=== PATIENT | female | born 1965 | race African-American/Black ===

== ENCOUNTER 2016-04-07 14:52 | Emergency (ER) | payer OTHER ==
--- NOTE | 2016-04-07 16:41 | ED ---
Throat Pain/Nasal Congestion - HPI Summary HPI Summary: 50 female presents today complaining of sore throat and right ear pain that started approximately 2-3 days ago. Patient states it hurts upon swallowing. She also complains of over production of clear saliva that she has to keep spitting out and sometimes causes her to gag. Patient states her daughter is home sick with similar symptoms. She also has been suffering from headache and chills, however she has not taken her temperature. Complains of radiation of pain to the right ear upon swallowing. She does still have her tonsils. She states her voice sounds different. Voice does not sound muffled upon exam. She denies any difficulty breathing, SOB, chest pain, cough, nasal congestion, sinus pressure/pain, nausea/vomiting, diarrhea or constipation. - History of Current Complaint Chief Complaint: EDThroatPain Hx Obtained From: Patient Onset/Duration: Sudden Onset - over the past 2 days, getting worse Severity: Moderate Associated Signs And Symptoms: Positive: Dysphagia, Drooling - excessive saliva production. Negative: FB Sensation, Wheezing, Hoarseness, Sinus Discomfort, Nasal Discharge Cough: None - Epiglottits Risk Factors Epiglottis Risk Factors: Negative - Allergies/Home Medications Allergies/Adverse Reactions: Allergies Allergy/AdvReac Type Severity Reaction Status Date / Time No Known Allergies Allergy Verified 07/24/15 11:05 PMH/Surg Hx/FS Hx/Imm Hx Previously Healthy: Yes Endocrine/Hematology History: Reports: Hx Diabetes Cardiovascular History: Denies: Hx Hypertension, Hx Pacemaker/ICD Respiratory History: Denies: Hx Asthma, Hx Pneumonia History: Denies: Hx Dialysis, Hx Renal Disease Sensory History: Denies: Hx Hearing Aid Psychiatric History: Denies: Hx Panic Disorder - Cancer History Hx Chemotherapy: No Hx Radiation Therapy: No - Surgical History Surgery Procedure, Year, and Place: . RT BREAST BX 9benign) Infectious Disease History: No Infectious Disease History: Denies: Hx Clostridium Difficile, Hx Hepatitis, Hx Human Immunodeficiency Virus (HIV), Hx of Known/Suspected MRSA, Hx Shingles, Hx Tuberculosis, Hx Known/ Suspected VRE, Hx Known/Suspected VRSA, History Other Infectious Disease, Traveled Outside the [place] in Last 30 Days - Family History Known Family History: Positive: Diabetes - Social History Alcohol Use: None Hx Substance Use: No Substance Use Type: Reports: None Hx Tobacco Use: No Smoking Status (MU): Never Smoked Tobacco Review of Systems Positive: Chills, Fatigue. Negative: Fever Eyes: Negative Positive: Sore Throat, Ear Ache - right ear. Negative: Dental Pain, Nasal Discharge Cardiovascular: Negative Negative: Palpitations Respiratory: Negative Negative: Shortness Of Breath, Cough Gastrointestinal: Negative Genitourinary: Negative Musculoskeletal: Negative Skin: Negative Neurological: Negative Negative: Slurred Speech Psychological: Normal All Other Systems Reviewed And Are Negative: Yes Physical Exam Triage Information Reviewed: Yes Vital Signs On Initial Exam: Initial Vitals Temp Pulse Resp BP Pulse Ox 97 F 86 16 197/83 100 04/07/16 14:54 04/07/16 14:54 04/07/16 14:54 04/07/16 14:54 04/07/16 14:54 Blood pressure elevated Vital Signs Reviewed: Yes Appearance: Positive: No Pain Distress, Well-Nourished, Ill-Appearing Skin: Positive: Warm, Skin Color Reflects Adequate Perfusion, Dry Head/Face: Positive: Normal Head/Face Inspection, Other - complains of pain upon palpation of cervical lymph nodes/anterior neck, no obvious swelling noted.. Negative: Temporal Artery Tenderness, TMJ Tenderness Eyes: Positive: Normal ENT: Positive: Hearing grossly normal, Pharyngeal erythema - erythema/ mild swelling in front of right tonsil. uvula midline. No muffled "hot potato voice" noted, TMs normal, Tonsillar swelling - painful to open mouth upon examination however no trismus. excessive saliva production upon examination. no exudate noted.. Negative: Nasal congestion, Nasal drainage, TM red, Trismus, Muffled/ hoarse voice, Dental tenderness Dental: Positive: Oropharynx - erythema, tonsillar swelling Neck: Positive: Supple, No Lymphadenopathy, Tenderness @ - anterior neck, right side more than left side Respiratory/Lung Sounds: Positive: Clear to Auscultation, Breath Sounds Present , Subcutaneous Emphysema Cardiovascular: Positive: Normal, RRR Abdomen Description: Positive: Nontender Bowel Sounds: Positive: Present Musculoskeletal: Positive: Normal Neurological: Positive: Normal Psychiatric: Positive: Normal Diagnostics - Vital Signs Vital Signs Temp Pulse Resp BP Pulse Ox 04/07/16 14:54 97 F 86 16 197/83 100 - Laboratory Pertinent Lab Values Are: WNL Except: - WBC Result Diagrams: 04/07/16 17:40 04/07/16 17:40 Lab Statement: Any lab studies that have been ordered have been reviewed, and results considered in the medical decision making process. - CT No standard instances CT Interpretation: Positive (See Comments) CT Interpretation Completed By: Radiologist - Swelling of the RIGHT greater than LEFT palatine tonsils with associated narrowing of the oral pharyngeal airway. Significant partial compression of the RIGHT piriform recess. Unremarkable epiglottis. No loculated peritonsillar abscess evident. Re-Evaluation - Re-Evaluation First Eval Re-Evaluation Time: 19:30 Change: Improved - Patient was doing better after ibuprofen and steroid. no adverse reaction to contrast. repeat blood pressure was lower than first. EENT Course/Dx - Course Course Of Treatment: Patient was evaluated for peritonsillar abscess. CBC, CMP, UA, fluids and CT soft tissue neck with contrast was ordered. Throat culture was negative. Cr normal. Negative test. No anaphylactic allergies known. WBC count slightly elevated. CBC, CMP otherwise normal. Patient given Ibuprofen 600mg and IV methylprednisone for pain/swelling. Repeat blood pressure was taken and lower. Patient is aware she should see her PCP to check for HTN and manage diabetes. - Differential Diagnoses Differential Diagnoses: Cellulitis, Dental Abscess, Epiglottitis, Otitis Media, Periodontic Abscess, Pharyngitis, Sinusitis, Tonsilitis - Diagnoses Provider Diagnoses: Acute tonsillitis - Provider Notifications Discussed Care of Patient with: Dr Johnson also examined patient, plan of care discussed with him Time Discussed With Above Provider: 17:30 Discharge - Discharge Plan Condition: Stable Disposition: HOME Prescriptions: predniSONE TAB* [Deltasone TAB*] 20 mg PO DAILY #3 tab Patient Education Materials: Tonsillitis (ED) Referrals: Jean-Claude Moore MD [Primary Care Provider] - Additional Instructions: Keep well hydrated and get a lot of rest. If symptoms worsen or you have any trouble breathing or difficulty swallowing seek medical attention immediately. Please follow up with your primary care provider within the next 7-10 days. Take OTC Ibuprofen, lozenges and use hot packs on neck for pain relief and swelling. Take prescribed steroid medication for the next 3 days.
[2016-04-07] MEDS ORDERED: NS 0.9% 1000 ML* 1,000 ML IV ONE (17:26)
[2016-04-07 17:52] LABS: Hematocrit 45 % (35-47); Hemoglobin 14.5 g/dl (12.0-16.0); Mean Corpuscular HGB Conc 32 g/dl (31-36); Mean Corpuscular Hemoglobin 28 pg (27-31); Mean Corpuscular Volume 87 fL (80-97); Mean Platelet Volume 9 um3 (7.4-10.4); Red Blood Count 5.23 10^6/ul (4.0-5.4); Red Cell Distribution Width 14 % (10.5-15); White Blood Count 14.3 10^3/ul (3.5-10.8)
[2016-04-07 18:03] LABS: ALT 25 U/L (7-52); AST 20 U/L (13-39); Alkaline Phosphatase 141 U/L (34-104); Anion Gap 7 mmol/L (2-11); BUN/Creatinine Ratio 10.5 (8-20); Blood Urea Nitrogen 9 mg/dL (6-24); CO2 Carbon Dioxide 25 mmol/L (22-32); Calcium 9.5 mg/dL (8.6-10.3); Chloride 103 mmol/L (101-111); EGFR African American 90.2 (>60); EGFR Non-African American 70.1 (>60); Globulin 3.4 g/dL (2-4); Glucose 175 mg/dL (70-100); Potassium 3.5 mmol/L (3.5-5.0); Sodium 135 mmol/L (133-145); Total Protein 7.4 g/dL (6.4-8.9)
[2016-04-07] MEDS ORDERED: Iodixanol* (CONTRAST) 320 MG/ML 100 ML SDV IV ONE (18:08)
[2016-04-07] MEDS ORDERED: Ibuprofen TAB* 600 MG PO ONE (18:56)
--- NOTE | 2016-04-07 18:56 | RAD ---
INDICATION: Sore throat and ear pain. Flulike symptoms. COMPARISON: None. TECHNIQUE: Multidetector CT images skull base to lung apices with 49 mL Visipaque 320 IV contrast. Multiplanar reformation. REPORT: Clear visualized upper lung zones. Artifact at the level of the jaws secondary to dental amalgam. Negative for cervical lymphadenopathy based on short axis criteria. Upper normal 1.1 cm short axis LEFT jugulodigastric node. Swelling of the RIGHT greater than LEFT palatine tonsils with associated narrowing of the oral pharyngeal airway. Significant partial compression of the RIGHT piriform recess. Unremarkable epiglottis. No suspicious finding of the false or true vocal cords or visualized subglottic airway. Clear symmetric parapharyngeal fat. Unremarkable parotid and submandibular glands. Unremarkable thyroid gland. Clear paranasal sinuses and mastoid air spaces. Unremarkable orbital contents. Patent bilateral internal jugular veins. No suspicious osseous lesions evident. IMPRESSION: Swelling of the RIGHT greater than LEFT palatine tonsils with associated narrowing of the oral pharyngeal airway. Significant partial compression of the RIGHT piriform recess. Unremarkable epiglottis. No loculated peritonsillar abscess evident.
[2016-04-07 19:05] VITALS: BP 167/90
[2016-04-07] MEDS ORDERED: methylPREDNISolone 125 MG* 2 ML VIAL IV ONE (19:15)
[2016-04-07] MEDS ORDERED: methylPREDNISolone 125 MG* 2 ML VIAL ONE (19:17)
--- NOTE | 2016-06-26 14:54 | ED ---
Britt Varner Adam, scribed for Harris Johnson MD on 04/07/16 at 1708 . Progress - Progress Note Progress Note: Examined pt. She has some peritonsilar enlargement on the right. No trismus, and tolerating secretions appropriately. Course/Dx - Diagnoses Provider Diagnoses: Acute tonsillitis The documentation as recorded by the Britt zayas Adam accurately reflects the service I personally performed and the decisions made by Alex oleary Jerry, MD.
== END 2016-04-07 19:39 | disposition home or self-care (01) ==
LOC: ED 14:52
DX: J03.90 Acute tonsillitis, unspecified (principal); E11.9 Type 2 diabetes mellitus without complications
CPT/HCPCS: 36415; 70491; 80053; 84702; 85025; 87651; 96361; 99283; A9270-GY; J2930; Q9967

== ENCOUNTER 2016-06-22 10:48 | Emergency (ER) | payer OTHER ==
--- NOTE | 2016-06-22 12:13 | RAD ---
INDICATION: Chest pain. COMPARISON: There are no prior studies available for comparison. TECHNIQUE: Dual-energy PA and lateral views of the chest were obtained. FINDINGS: The heart is within normal limits in size. Mediastinal and hilar contours appear within normal limits. The lungs are clear. No pleural effusion is present. IMPRESSION: NO EVIDENCE FOR ACTIVE CARDIOPULMONARY DISEASE.
[2016-06-22 13:10] VITALS: BP 131/82
--- NOTE | 2016-06-22 13:51 | ED ---
Influenza-Like Illness - HPI Summary HPI Summary: Patient arrives with 2 day history flu like symptoms including nausea, muscle aches, back ache, cough and weakness with fever. She denies sick contacts. Denies vomiting, diarrhea or constipation. Denies flu vaccine this year. Patient is a diabetic but states she is otherwise healthy but sometimes takes pain medications for a previous injury. NKA. - History of Current Complaint Chief Complaint: EDFluSymptoms Time Seen by Provider: 06/22/16 11:19 Hx Obtained From: Patient Onset/Duration: Sudden Onset Severity: Moderate Associated Signs & Symptoms: Fever, T Max - unknown, F/C, Myalgia, Sore Throat, Nasal Congestion, Headache - Risk Factors Influenza Risk Factors: Negative - Allergy/Home Medications Allergies/Adverse Reactions: Allergies Allergy/AdvReac Type Severity Reaction Status Date / Time No Known Allergies Allergy Verified 07/24/15 11:05 PMH/Surg Hx/FS Hx/Imm Hx Previously Healthy: Yes Endocrine/Hematology History: Reports: Hx Diabetes Cardiovascular History: Denies: Hx Hypertension, Hx Pacemaker/ICD Respiratory History: Denies: Hx Asthma, Hx Pneumonia History: Denies: Hx Dialysis, Hx Renal Disease Sensory History: Denies: Hx Hearing Aid Psychiatric History: Denies: Hx Panic Disorder - Cancer History Hx Chemotherapy: No Hx Radiation Therapy: No - Surgical History Surgery Procedure, Year, and Place: . RT BREAST BX 9benign) Infectious Disease History: No Infectious Disease History: Denies: Hx Clostridium Difficile, Hx Hepatitis, Hx Human Immunodeficiency Virus (HIV), Hx of Known/Suspected MRSA, Hx Shingles, Hx Tuberculosis, Hx Known/ Suspected VRE, Hx Known/Suspected VRSA, History Other Infectious Disease, Traveled Outside the [place] in Last 30 Days - Family History Known Family History: Positive: Diabetes - Social History Alcohol Use: None Hx Substance Use: No Substance Use Type: Reports: None Hx Tobacco Use: No Smoking Status (MU): Never Smoked Tobacco Review of Systems Positive: Fever, Fatigue Eyes: Negative Positive: Sore Throat Cardiovascular: Negative Respiratory: Negative Positive: Nausea Positive: no symptoms reported, see HPI Positive: Myalgia Positive: Rash Positive: Headache, Weakness Psychological: Normal All Other Systems Reviewed And Are Negative: Yes Physical Exam Triage Information Reviewed: Yes Vital Signs On Initial Exam: Initial Vitals Temp Pulse Resp BP Pulse Ox 98.7 F 92 18 134/88 99 03/21/17 11:00 06/22/16 11:00 06/22/16 11:00 06/22/16 11:00 06/22/16 11:00 Vital Signs Reviewed: Yes Appearance: Positive: Well-Appearing, Well-Nourished Skin: Positive: Warm, Skin Color Reflects Adequate Perfusion, Mottled @ Eyes: Positive: EOMI, BERTO, Conjunctiva Clear Neck: Positive: Supple, No Lymphadenopathy Respiratory/Lung Sounds: Positive: Clear to Auscultation, Breath Sounds Present Cardiovascular: Positive: RRR Abdomen Description: Positive: Nontender Bowel Sounds: Positive: Present Musculoskeletal: Positive: Normal, Strength/ROM Intact Neurological: Positive: Alert, Oriented to Person Place, Time, Speech Normal Psychiatric: Positive: Normal AVPU Assessment: Alert Diagnostics - Vital Signs Vital Signs Temp Pulse Resp BP Pulse Ox 06/22/16 13:07 98.8 F 87 16 131/82 06/22/16 11:00 98.7 F 92 18 134/88 99 - Laboratory Lab Results: Lab Results 06/22/16 Range/Units 11:40 Influenza A (Rapid) Negative (Negative) Influenza B (Rapid) Positive H (Negative) Lab Statement: Any lab studies that have been ordered have been reviewed, and results considered in the medical decision making process. Flu Symptom Course/Dx - Course Course Of Treatment: Flu swab positive for influenza B. Chest xray negative. Patient educated on risks and benefits of tamiflu. Patient within 48 hour limitation. Patient requesting medication. Encouraged tylenol and fluids and rest. Note given for work. - Diagnoses Differential Diagnosis/HQI/PQRI: Positive: Influenza, Pneumonia, Upper Respiratory Infection Provider Diagnoses: Influenza B Discharge - Discharge Plan Condition: Stable Disposition: HOME Prescriptions: Oseltamivir CAP* [Tamiflu CAP*] 75 mg PO BID #10 cap MDD 2 Patient Education Materials: Oseltamivir (By mouth), Influenza (ED) Forms: *Work Release Referrals: Jean-Claude Moore MD [Primary Care Provider] - Additional Instructions: Follow up with PCP. Drink plenty of fluids. Humidifier in the home will help. Tylenol 650mg three times daily as needed for discomfort. Take precautions when surrounding yourself with others.
== END 2016-06-22 13:07 | disposition home or self-care (01) ==
LOC: ED 10:48
DX: J11.1 Influenza due to unidentified influenza virus with other respiratory manifestations (principal); R50.9 Fever, unspecified; J02.9 Acute pharyngitis, unspecified; R51 Headache
CPT/HCPCS: 71020; 87502; 99282

== ENCOUNTER 2017-01-19 17:36 | Emergency (ER) | payer OTHER ==
[2017-01-19 18:51] LABS: Hematocrit 41 % (35-47); Hemoglobin 13.7 g/dl (12.0-16.0); Mean Corpuscular HGB Conc 33 g/dl (31-36); Mean Corpuscular Hemoglobin 29 pg (27-31); Mean Corpuscular Volume 87 fL (80-97); Mean Platelet Volume 8 um3 (7.4-10.4); Red Blood Count 4.74 10^6/ul (4.0-5.4); Red Cell Distribution Width 14 % (10.5-15); White Blood Count 11.8 10^3/ul (3.5-10.8)
[2017-01-19 19:34] LABS: Albumin 3.4 g/dL (3.2-5.2); BUN/Creatinine Ratio 11.5 (8-20); Calcium 8.9 mg/dL (8.6-10.3); EGFR African American 88.6 (>60); EGFR Non-African American 68.9 (>60); Globulin 3.2 g/dL (2-4); Total Bilirubin 0.4 mg/dL (0.2-1.0); Total Protein 6.6 g/dL (6.4-8.9)
[2017-01-19] MEDS ORDERED: Lidocaine PATCH 5%* 1 PATCH TRANSDERM ONE (20:13)
--- NOTE | 2017-01-19 20:13 | ED ---
Lower Extremity - HPI Summary HPI Summary: 51F presents with right sided leg pain and right metatarsal pain for 2 weeks. She has sciatica pain for 2 months. she is seeing her primary for the sciatica pain and is taking flexeril for it. She denies any change in her sciatica pain. She denies any injury. She denies any loss of bowel or bladder or saddle anaesthesia. She is DM2. She states she has been having pain and swelling to her right MTP joint. The joint is not red or warm. She denies any history of gout. She denies any fever. - History of Current Complaint Chief Complaint: EDExtremityLower Stated Complaint: RT SIDE SHARP PAIN/RT FOOT INJURY Time Seen by Provider: 01/19/17 19:00 Hx Last Menstrual Period: 04/02/15 Pain Intensity: 8 - Allergies/Home Medications Allergies/Adverse Reactions: Allergies Allergy/AdvReac Type Severity Reaction Status Date / Time No Known Allergies Allergy Verified 07/24/15 11:05 PMH/Surg Hx/FS Hx/Imm Hx Endocrine/Hematology History: Reports: Hx Diabetes Cardiovascular History: Denies: Hx Hypertension, Hx Pacemaker/ICD Respiratory History: Denies: Hx Asthma, Hx Pneumonia History: Denies: Hx Dialysis, Hx Renal Disease Sensory History: Denies: Hx Hearing Aid Psychiatric History: Denies: Hx Panic Disorder - Cancer History Hx Chemotherapy: No Hx Radiation Therapy: No - Surgical History Surgery Procedure, Year, and Place: . RT BREAST BX 9benign) Infectious Disease History: No Infectious Disease History: Denies: Hx Clostridium Difficile, Hx Hepatitis, Hx Human Immunodeficiency Virus (HIV), Hx of Known/Suspected MRSA, Hx Shingles, Hx Tuberculosis, Hx Known/ Suspected VRE, Hx Known/Suspected VRSA, History Other Infectious Disease, Traveled Outside the [place] in Last 30 Days - Family History Known Family History: Positive: Diabetes - Social History Alcohol Use: None Hx Substance Use: No Substance Use Type: Reports: None Hx Tobacco Use: No Smoking Status (MU): Never Smoked Tobacco Review of Systems Negative: Fever Negative: Chest Pain Negative: Shortness Of Breath Positive: Arthralgia - right great MTP joint pain, Myalgia - right sciatica All Other Systems Reviewed And Are Negative: Yes Physical Exam Triage Information Reviewed: Yes Vital Signs On Initial Exam: Initial Vitals Temp Pulse Resp BP Pulse Ox 98.0 F 96 20 140/73 98 01/19/17 17:38 01/19/17 17:38 01/19/17 17:38 01/19/17 17:38 01/19/17 17:38 Vital Signs Reviewed: Yes Appearance: Positive: Well-Appearing Skin: Positive: Warm, Dry Head/Face: Positive: Normal Head/Face Inspection Eyes: Positive: Normal, Conjunctiva Clear Respiratory/Lung Sounds: Positive: Clear to Auscultation, Breath Sounds Present Cardiovascular: Positive: Normal, RRR Musculoskeletal: Positive: Other - tenderness over MTP of right great toe with no erythema or warmth to area, tenderness right side of back, pos SLR right, no midline tenderness back Neurological: Positive: Normal Psychiatric: Positive: Normal - Dwayne Coma Scale Coma Scale Total: 15 Diagnostics - Vital Signs Vital Signs Temp Pulse Resp BP Pulse Ox 01/19/17 17:38 98.0 F 96 20 140/73 98 - Laboratory Lab Results: Lab Results 01/19/17 01/19/17 01/19/17 Range/Units 18:42 18:42 18:42 WBC 11.8 H (3.5-10.8) 10^3/ul RBC 4.74 (4.0-5.4) 10^6/ul Hgb 13.7 (12.0-16.0) g/dl Hct 41 (35-47) % MCV 87 (80-97) fL MCH 29 (27-31) pg MCHC 33 (31-36) g/dl RDW 14 (10.5-15) % Plt Count 283 (150-450) 10^3/ul MPV 8 (7.4-10.4) um3 Neut % (Auto) 62.3 (38-83) % Lymph % (Auto) 28.5 (25-47) % [place] % (Auto) 6.1 (1-9) % Eos % (Auto) 2.5 (0-6) % Baso % (Auto) 0.6 (0-2) % Absolute Neuts (auto) 7.4 (1.5-7.7) 10^3/ul Absolute Lymphs (auto) 3.4 (1.0-4.8) 10^3/ul Absolute Monos (auto) 0.7 (0-0.8) 10^3/ul Absolute Eos (auto) 0.3 (0-0.6) 10^3/ul Absolute Basos (auto) 0.1 (0-0.2) 10^3/ul Absolute Nucleated RBC 0.01 10^3/ul Nucleated RBC % 0 Sodium 135 (133-145) mmol/L Potassium 4.0 (3.5-5.0) mmol/L Chloride 103 (101-111) mmol/L Carbon Dioxide 27 (22-32) mmol/L Anion Gap 5 (2-11) mmol/L BUN 10 (6-24) mg/dL Creatinine 0.87 (0.51-0.95) mg/dL Est GFR ( Amer) 88.6 (>60) Est GFR (Non-Af Amer) 68.9 (>60) BUN/Creatinine Ratio 11.5 (8-20) Glucose 195 H (70-100) mg/dL Lactic Acid 1.6 (0.5-2.0) mmol/L Calcium 8.9 (8.6-10.3) mg/dL Total Bilirubin 0.40 (0.2-1.0) mg/dL AST 13 (13-39) U/L ALT 22 (7-52) U/L Alkaline Phosphatase 113 H (34-104) U/L C-React Prot High Sens 20.76 mg/L Total Protein 6.6 (6.4-8.9) g/dL Albumin 3.4 (3.2-5.2) g/dL Globulin 3.2 (2-4) g/dL Albumin/Globulin Ratio 1.1 (1-3) Result Diagrams: 01/19/17 18:42 01/19/17 18:42 Lab Statement: Any lab studies that have been ordered have been reviewed, and results considered in the medical decision making process. Lower Extremity Course/Dx - Course Course Of Treatment: 51F presents with right sided leg pain and right metatarsal pain for 2 weeks. She has sciatica pain for 2 months. she is seeing her primary for the sciatica pain and is taking flexeril for it. She denies any change in her sciatica pain. She denies any injury. She denies any loss of bowel or bladder or saddle anaesthesia. She is DM2. She states she has been having pain and swelling to her right MTP joint. The joint is not red or warm. She denies any history of gout. She denies any fever. on exam pos SLR right, tenderness right side of back, no midline tenderness. tenderness over MTP joint with minimal swelling, no redness or wamrth to joint. joint does not appear septic or gout. will have try ibuprofen and follow up with podiatry. patient understands and agrees with plan. - Diagnoses Differential Diagnosis/HQI/PQRI: Positive: Gout, Sciatica, Septic Arthritis Provider Diagnoses: Right foot pain, Right sided sciatica Discharge - Discharge Plan Condition: Good Disposition: HOME Patient Education Materials: Sciatica (ED) Forms: *School Release Referrals: Jean-Claude Moore MD [Primary Care Provider] - Additional Instructions: Apply lidocaine patches to area for up to 12 hours in one 24 hour period can get over the counter Use ibuprofen for pain every 6 hours heat area, move as much as possible Follow up with primary within 5 days Follow up with podiatry about foot Return to ED if develop any new or worsening symptoms
[2017-01-19 20:27] VITALS: BP 104/66
== END 2017-01-19 20:26 | disposition home or self-care (01) ==
LOC: ED 17:36
DX: M79.671 Pain in right foot (principal); M54.31 Sciatica, right side; E11.9 Type 2 diabetes mellitus without complications
CPT/HCPCS: 36415; 80053; 83605; 85025; 86141; 99282; A9270-GY

== ENCOUNTER 2017-04-29 11:35 | Day surgery (SDC) | payer OTHER ==
[2017-04-29] MEDS ORDERED: Bupivacaine 0.25% SDV* 30 ML ONE (11:55)
[2017-04-29] MEDS ORDERED: Dexamethasone IV* 4 MG/ML 1 ML (4 MG) ONE ×2 (11:55→13:07)
[2017-04-29] MEDS ORDERED: Lidocaine 1% INJ* 10 MG/ML 30 ML SDV ONE (11:55)
[2017-04-29 13:41] VITALS: BP 158/101
--- NOTE | 2017-04-29 18:02 | RAD ---
CPT II Codes: 6045F Indication: Foreign body removal. Right great toe. Fluoroscopic services provided for referring physician. 38 seconds of fluoroscopy time was used. At least 40 images demonstrates localization of a foreign body with removal. impression: Fluoroscopic services provided for referring physician for foreign body removal.
--- NOTE | 2017-04-30 02:41 | OP ---
DATE OF OPERATION: 04/29/17 - [facility] DATE OF : 67 SURGEON: Bryant Scott DPM ANESTHESIA: MAC local. PRE-OP DIAGNOSIS: Right foot foreign body. POST-OP DIAGNOSIS: Right foot foreign body. OPERATIVE PROCEDURE: Right foot foreign body removal. ESTIMATED BLOOD LOSS: Less than 10 cc. IV FLUIDS: LR 1000 cc. DRAINS: None. SPECIMENS: Foreign body granuloma along with a tip of appears to be sewing needle approximately half inch in length. DESCRIPTION OF PROCEDURE: The patient was taken to the operating room and was placed in supine position. A time-out was called and OR team agreed. The right foot was then blocked with 3 cc of 1% lidocaine plain locally to the first metatarsophalangeal joint. The foot was then prepped and draped in a sterile manner. The right foot was then exsanguinated with an Esmarch bandage and the cuff was inflated to 250 mmHg. Attention was paid to the plantar aspect of the right first metatarsophalangeal joint where x-rays in the office showed a foreign body. I went ahead and tried to localize it using an 18-gauge needle as well as fluoroscopy. I was able to localize it. I made a small stab incision. I tried to remove it with a mosquito clamps. The foreign body was localized in the soft tissue, plantar aspect in the fat pad layer. It appears localized just distal to the sesamoid and right underneath the base of the proximal phalanx. It was determined at that time that the foreign body appears to move with the forceps and I could not get a good grab on it. I then went ahead and made a larger incision and tried to actually visualize it, was able to localize and visualize it and remove it and sent to pathology. This completed the procedure. The foot was then irrigated, closed in fashion. The cuff was desufflated. The patient was placed in dry sterile dressing, was taken to Recovery in stable condition. [id number]/[facility] #: [id number] RHEA
== END 2017-04-29 13:42 | disposition home or self-care (01) ==
LOC: OR 11:35
PROVIDERS: ATTEND Podiatrist
DX: S91.341A Puncture wound with foreign body, right foot, initial encounter (principal); E11.9 Type 2 diabetes mellitus without complications; Z79.84 Long term (current) use of oral hypoglycemic drugs; W22.8XXA Striking against or struck by other objects, initial encounter; Y92.9 Unspecified place or not applicable
CPT/HCPCS: 76000; 88304; J1100